=== PATIENT | male | born 1980 | race Caucasian/White ===

== ENCOUNTER 2020-01-25 15:39 | Outpatient (RCR) | payer OTHER | END 2020-02-06 | disposition home or self-care (01) | LOC: WSOH | DX: S39.012A Strain of muscle, fascia and tendon of lower back, initial encounter (principal); Y99.0 Civilian activity done for income or pay ==

== ENCOUNTER 2020-03-07 19:31 | Emergency (ER) | payer OTHER ==
[~2020-03-07] VITALS: Ht 167.6 cm; Wt 145.5 kg
[2020-03-07 19:45] VITALS: TEMP 98
[2020-03-07 21:05] VITALS: BP 116/85; PULSE 84
== END 2020-03-07 21:05 | disposition home or self-care (01) ==
LOC: COL.ER 19:31
DX: S20.212A Contusion of left front wall of thorax, initial encounter (principal); S80.02XA Contusion of left knee, initial encounter; Z88.6 Allergy status to analgesic agent; V43.52XA Car driver injured in collision with other type car in traffic accident, initial encounter